=== PATIENT | male | born 1995 | race Caucasian/White ===

== ENCOUNTER 2019-08-04 19:32 | Emergency (ER) | payer BC ==
[2019-08-04 19:44] VITALS: BP 132/93; PULSE 79
[2019-08-04] MEDS ORDERED: Sodium Chloride 0.9% 1,000 ML IV ONE (20:34)
[2019-08-04] MEDS ORDERED: Sodium Chloride 0.9% 10 ML Syringe FLUSH PRN (20:34)
[2019-08-04] MEDS ORDERED: Ondansetron 4 MG/2 ML SDV IVPUSH ONE (20:34)
--- NOTE | 2019-08-04 21:01 | EDM.PDOC ---
ED HPI GENERAL MEDICAL PROBLEM - General Chief Complaint: Gastrointestinal Problem Stated Complaint: LOWER ABDOMINAL PAIN Time Seen by Provider: 08/04/19 20:20 Source of Information: Reports: Patient History Limitations: Reports: No Limitations - History of Present Illness INITIAL COMMENTS - FREE TEXT/NARRATIVE: 23-year-old male presents for evaluation and treatment of nausea, vomiting and diarrhea. Patient reports he has been experiencing symptoms the last 2 or 3 weeks. He states prior to that the last 2 months he has had looser, non-formed stools. He reports abdominal pain primarily in the epigastric region. He states that he will vomit anywhere from 0-4 times a day. Reports that he has multiple episodes of diarrhea nearly all day. No blood in his stool. He denies any fevers , chills or any dysuria. States his urine is more concentrated. He has tried some Tums for the heartburn but has not tried any [id number] antidiarrheal medications. No recent travel. He was on antibiotics this spring for strep throat this spring. no primary care provider. - Related Data Allergies Allergy/AdvReac Type Severity Reaction Status Date / Time Sulfa (Sulfonamide Allergy Hives Verified 08/04/19 19:44 Antibiotics) Home Meds: Home Meds Ibuprofen 800 mg PO Q6H PRN 08/30/16 [History] Ondansetron [Zofran ODT] 4 mg PO Q6H PRN #20 tab.dis 08/04/19 [Rx] Past Medical History - Past Health History Medical/Surgical History: Denies Medical/Surgical History Social & Family History - Tobacco Use Smoking Status *Q: Never Smoker - Caffeine Use Caffeine Use: Reports: Soda ED ROS GENERAL - Review of Systems Review Of Systems: See Below Constitutional: Denies: Fever, Chills GI/Abdominal: Reports: Abdominal Pain (epigstric), Diarrhea, Nausea, Vomiting. Denies: Bloody Stool, Hematochezia, Melena : Denies: Dysuria ED EXAM, GI/ABD - Physical Exam Exam: See Below Exam Limited By: No Limitations General Appearance: Alert, WD/WN, No Apparent Distress Ears: Normal External Exam Nose: Normal Inspection Throat/Mouth: Normal Inspection, Normal Lips, Normal Voice, No Airway Compromise Respiratory/Chest: No Respiratory Distress, Lungs Clear, Normal Breath Sounds Cardiovascular: Normal Peripheral Pulses, Regular Rate, Rhythm, No Murmur GI/Abdominal Exam: Soft, No Distention, Tender (epigastric) Neurological: Alert, Oriented, Normal Cognition Psychiatric: Normal Affect, Normal Mood Skin Exam: Warm, Dry, Normal Color Course - Vital Signs Last Recorded V/S: Last Vital Signs Temp 98.3 F 08/04/19 19:41 Pulse 79 08/04/19 19:41 Resp 18 08/04/19 19:41 BP 132/93 H 08/04/19 19:41 Pulse Ox 99 08/04/19 19:41 - Orders/Labs/Meds Orders: Active Orders 24 hr Category Date Time Status Orthostatic Vital Signs [RC] ASDIRECTED Care 08/04/19 20:33 Active Peripheral IV Care [RC] . DIRECTED Care 08/04/19 20:34 Active C DIFFICILE BY PCR W/NAP1 [MOLEC] Stat Lab 08/04/19 20:33 Ordered CULTURE STOOL + SHIGATOX [RM] Stat Lab 08/04/19 20:33 Ordered WBC, STOOL [OP] Stat Lab 08/04/19 20:33 Ordered Sodium Chloride 0.9% [Saline Flush] Med 08/04/19 20:34 Active 10 ml FLUSH ASDIRECTED PRN Isolation [COMM] Stat Oth 08/04/19 20:34 Ordered Peripheral IV Insertion Adult [OM.PC] Routine Oth 08/04/19 20:34 Ordered Medication Orders Sodium Chloride (Saline Flush) 10 ml FLUSH ASDIRECTED PRN PRN Reason: Keep Vein Open Last Admin: 08/04/19 21:08 Dose: 10 ml Labs: Laboratory Tests 08/04/19 08/04/19 08/04/19 Range/Units 20:15 20:15 22:00 WBC 8.70 (4.23-9.07) K/mm3 RBC 5.52 (4.63-6.08) M/mm3 Hgb 16.3 (13.7-17.5) gm/dl Hct 45.8 (40.1-51.0) % MCV 83.0 (79.0-92.2) fl MCH 29.5 (25.7-32.2) pg MCHC 35.6 H (32.2-35.5) g/dl RDW Std Deviation 36.5 (35.1-43.9) fL Plt Count 282 (163-337) K/mm3 MPV 10.3 (9.4-12.3) fl Neutrophils % (Manual) 36 L (40-60) % Band Neutrophils % 3 (0-10) % Lymphocytes % (Manual) 41 H (20-40) % Atypical Lymphs % 0 % Monocytes % (Manual) 19 H (2-10) % Eosinophils % (Manual) 1 (0.8-7.0) % Basophils % (Manual) 0 L (0.2-1.2) Platelet Estimate Adequate Plt Morphology Comment Normal RBC Morph Comment Normal Sodium 140 (136-145) mEq/L Potassium 3.4 L (3.5-5.1) mEq/L Chloride 104 (98-107) mEq/L Carbon Dioxide 27 (21-32) mEq/L Anion Gap 12.4 (5-15) BUN 18 (7-18) mg/dL Creatinine 1.0 (0.7-1.3) mg/dL Est Cr Clr Drug Dosing 127.18 mL/min Estimated GFR (MDRD) > 60 (>60) mL/min BUN/Creatinine Ratio 18.0 (14-18) Glucose 89 (74-106) mg/dL Calcium 9.1 (8.5-10.1) mg/dL Total Bilirubin 1.1 H (0.2-1.0) mg/dL AST 17 (15-37) U/L ALT 40 (16-63) U/L Alkaline Phosphatase 83 (46-116) U/L C-Reactive Protein < 0.2 (<1.0) mg/dL Total Protein 7.6 (6.4-8.2) g/dl Albumin 4.4 (3.4-5.0) g/dl Globulin 3.2 gm/dL Albumin/Globulin Ratio 1.4 (1-2) Lipase 99 (73-393) U/L Urine Color Yellow (Yellow) Urine Appearance Clear (Clear) Urine pH 7.0 (5.0-8.0) Ur Specific [place] 1.020 (1.005-1.030) Urine Protein Negative (Negative) Urine Glucose (UA) Negative (Negative) Urine Ketones Negative (Negative) Urine Occult Blood Negative (Negative) Urine Nitrite Negative (Negative) Urine Bilirubin Negative (Negative) Urine Urobilinogen 0.2 (0.2-1.0) Ur Leukocyte Esterase Negative (Negative) Urine RBC Not seen (0-5) /hpf Urine WBC Not seen (0-5) /hpf Ur Squamous Epith Cells Not seen (0-5) /hpf Amorphous Sediment Few H (NOT SEEN) /hpf Urine Bacteria Occasional (FEW) /hpf Urine Mucus Few (FEW) /hpf Meds: Medications Generic Name Dose Route Start Last Admin Trade Name Beulah PRN Reason Stop Dose Admin Sodium Chloride 10 ml 08/04/19 20:34 08/04/19 21:08 Saline Flush FLUSH 10 ml ASDIRECTED PRN Administration Keep Vein Open Discontinued Medications Generic Name Dose Route Start Last Admin Trade Name Freq PRN Reason Stop Dose Admin Sodium Chloride 1,000 mls @ 999 mls/hr 08/04/19 20:34 08/04/19 21:08 Normal Saline IV 08/04/19 21:34 999 mls/hr ONETIME ONE Administration Ondansetron HCl 4 mg 08/04/19 20:34 08/04/19 21:08 Zofran IVPUSH 08/04/19 20:35 4 mg ONETIME ONE Administration - Re-Assessments/Exams Free Text/Narrative Re-Assessment/Exam: 08/04/19 22:47 Checked on the patient. Unfortunately he is unable to give us a stool sample. I will discharge him home with some Zofran and instructions to utilize a probiotic. I will give sample containers to do a stool study at home. He is to return to the ER if his symptoms change or worsen. Discharge instructions as documented. Departure - Departure Time of Disposition: 22:48 Disposition: Home, Self-Care 01 Condition: Fair Clinical Impression: Diarrhea, Gastroenteritis - Discharge Information *PRESCRIPTION DRUG MONITORING PROGRAM REVIEWED*: No *COPY OF PRESCRIPTION DRUG MONITORING REPORT IN PATIENT KASEY: No Prescriptions: Ondansetron [Zofran ODT] 4 mg PO Q6H PRN #20 tab.dis PRN Reason: Nausea Instructions: Viral Gastroenteritis, Adult, [id number], Diarrhea, Adult, Easy -to-Read Referrals: PCP,None [Primary Care Provider] - Forms: ED Department Discharge Additional Instructions: Zofran 1 tab sublingual every 6-8 hours as needed for nausea. Recommend a probiotic. These are available [id number]. Recommend clear fluids and a bland diet such as bread, applesauce, egg whites, bananas etc. Follow-up with family medicine if her symptoms have not improved much in the next 1-2 weeks.. At the [facility] recommend Ethel Rodriguez or Jazmin Hernandez. Call [phone] to schedule with one of these providers. Please return to the ER if your symptoms change or worsen. - My Orders Last 24 Hours: My Active Orders 08/04/19 20:33 Orthostatic Vital Signs [RC] ASDIRECTED C DIFFICILE BY PCR W/NAP1 [MOLEC] Stat CULTURE STOOL + SHIGATOX [RM] Stat WBC, STOOL [OP] Stat 08/04/19 20:34 Peripheral IV Care [RC] . DIRECTED Sodium Chloride 0.9% [Saline Flush] 10 ml FLUSH ASDIRECTED PRN Isolation [COMM] Stat Peripheral IV Insertion Adult [OM.PC] Routine - Assessment/Plan Last 24 Hours: My Active Orders 08/04/19 20:33 Orthostatic Vital Signs [RC] ASDIRECTED C DIFFICILE BY PCR W/NAP1 [MOLEC] Stat CULTURE STOOL + SHIGATOX [RM] Stat WBC, STOOL [OP] Stat 08/04/19 20:34 Peripheral IV Care [RC] . DIRECTED Sodium Chloride 0.9% [Saline Flush] 10 ml FLUSH ASDIRECTED PRN Isolation [COMM] Stat Peripheral IV Insertion Adult [OM.PC] Routine
== END 2019-08-04 23:05 | disposition home or self-care (01) ==
LOC: JD.ED 19:32
DX: K52.9 Noninfective gastroenteritis and colitis, unspecified (principal); Z88.2 Allergy status to sulfonamides
CPT/HCPCS: 36415; 80053; 81001; 83690; 85007; 85027; 86140; 96361; 96374; 99284; J2405; J7040; 99283

== ENCOUNTER 2022-07-27 19:09 | Emergency (ER) | payer OTHER, BC ==
[2022-07-27 19:48] VITALS: BP 123/87; PULSE 117
== END 2022-07-27 20:39 | disposition home or self-care (01) ==
LOC: JD.ED 19:09
DX: S81.812A Laceration without foreign body, left lower leg, initial encounter (principal); S31.119A Laceration without foreign body of abdominal wall, unspecified quadrant without penetration into peritoneal cavity, initial encounter; S20.412A Abrasion of left back wall of thorax, initial encounter; F17.210 Nicotine dependence, cigarettes, uncomplicated; Z88.2 Allergy status to sulfonamides; V53.5XXA Driver of pick-up truck or van injured in collision with car, pick-up truck or van in traffic accident, initial encounter; Y92.410 Unspecified street and highway as the place of occurrence of the external cause
CPT/HCPCS: 12001; 99283; 99284

== ENCOUNTER 2024-07-27 20:08 | Emergency (ER) | payer BC ==
[2024-07-27] MEDS ORDERED: Sodium Chloride 0.9% 10 ML Syringe FLUSH PRN (21:33)
[2024-07-27 21:44] LABS: BASOPHILS PERCENT AUTO 0.3 % (0.0-1.0); EOSINOPHILS ABSOLUTE AUTO 0.1 K/mm3 (0.0-0.4); EOSINOPHILS PERCENT AUTO 0.5 % (0.0-6.0); HEMATOCRIT 47.4 % (42.0-52.0); IMMATURE GRAN ABSOLUTE AUTO 0.06 K/mm3 (0.00-0.05); IMMATURE GRAN PERCENT AUTO 0.6 % (0.0-0.4); LYMPHOCYTES ABSOLUTE AUTO 2.8 K/mm3 (1.0-4.8); LYMPHOCYTES PERCENT AUTO 29.6 % (24.0-44.0); MEAN CORPUSCULAR HGB CONC 33.8 g/dl (32.0-36.0); MEAN PLATELET VOLUME 9.8 fl (9.4-12.4); MONOCYTES ABSOLUTE AUTO 1.1 K/mm3 (0.0-0.8); MONOCYTES PERCENT AUTO 11.9 % (0.0-8.0); NEUTROPHILS ABSOLUTE AUTO 5.4 K/mm3 (1.8-7.7); NEUTROPHILS PERCENT AUTO 57.1 % (41.0-71.0); PLATELET COUNT,PLT 276 K/mm3 (150-400); RED BLOOD CELL COUNT 5.51 M/mm3 (4.52-5.90); WHITE BLOOD CELL COUNT,WBC 9.47 K/mm3 (3.9-11.3)
[2024-07-27 21:57] LABS: A/G RATIO 1.2 (1-2); ALBUMIN 4.2 g/dl (3.4-5.0); ANION GAP 14.5 (5-15); BILIRUBIN TOTAL 1.5 mg/dL (0.2-1.0); BUN/CREATININE RATIO 11.8 (14-18); CALCIUM 9.4 mg/dL (8.5-10.1); CREATININE 1.1 mg/dL (0.7-1.3); EST CRCL DRUG DOSING (CG) 127.13 mL/min; POTASSIUM,K 3.5 mEq/L (3.5-5.1); PROTEIN TOTAL,TP 7.8 g/dl (6.4-8.2)
[2024-07-27] MEDS: diphenhydrAMINE 50 MG/ML SDV IVPUSH ONE (22:00)
[2024-07-27] MEDS: Sodium Chloride 0.9% 1,000 ML IV ONE (22:00)
[2024-07-27] MEDS: Acetaminophen 325 MG Tab PO ONE (22:00)
[2024-07-27] MEDS: Metoclopramide 10 MG/2 ML SDV IVPUSH ONE (22:00)
[2024-07-27] MEDS: Ketorolac 15 MG/ML SDV IVPUSH ONE (23:08)
[2024-07-27 23:13] VITALS: BP 128/85; PULSE 80
== END 2024-07-27 23:14 | disposition home or self-care (01) ==
LOC: JD.ED 20:08
DX: R51.9 Headache, unspecified (principal); Z79.899 Other long term (current) drug therapy; Z88.2 Allergy status to sulfonamides
CPT/HCPCS: 36415; 70450; 72125; 80053; 85025; 96374; 96375; 99284; A9270; J1200; J1885; J2765; J7030